=== PATIENT | female | born 1955 | race Hispanic/Latino ===

== ENCOUNTER → 2024-02-04 | Outpatient (REF) | payer OTHER ==
[~2024-02-04] MED LIST: IOPAMIDOL 370 MG/ML 100 ML INFUS..BTL INJ ONE
[2024-02-04 16:24] LABS: CREATININE, SERUM 0.85 mg/dL (0.57-1.11)
== END ==
LOC: CT 15:32 → EDSTATUS 16:00
PROVIDERS: ATTEND Surgery
DX: R22.1 Localized swelling, mass and lump, neck (principal); E04.2 Nontoxic multinodular goiter
CPT/HCPCS: 36415; 70491; 82565; 84520; Q9967